=== PATIENT | female | born 1995 | race Caucasian/White ===

== ENCOUNTER 2018-06-27 15:22 | Emergency (ER) | payer OTHER ==
[2018-06-27] MEDS: HYDROCODONE/APAP (10/325) TAB PO (15:41)
[2018-06-27] MEDS: ONDANSETRON (ODT) 4 MG TAB ODT (15:41)
== END 2018-06-27 18:33 | disposition home or self-care (01) ==
LOC: E/R 15:22
DX: M54.2 Cervicalgia (principal); R51 Headache; R20.2 Paresthesia of skin; R07.9 Chest pain, unspecified
CPT/HCPCS: 70450; 71045; 72125; 74176; 81025; 99284-25

== ENCOUNTER 2018-12-16 11:46 | Inpatient (IN) | payer OTHER ==
[~2018-12-16 11:46] MED LIST: ONDANSETRON 4 MG INJ
[2018-12-16] MEDS ORDERED: FENTAnyl 50 MCG/ML VIAL IV ×3 (15:00)
[2018-12-16] MEDS ORDERED: DIPHENHYDRAMINE 50 MG INJ IV (15:00)
[2018-12-16] MEDS ORDERED: LABETALOL HCL 20MG INJ IV (15:00)
[2018-12-16] MEDS ORDERED: MEPERIDINE 25 MG INJ IV (15:00)
[2018-12-16] MEDS ORDERED: hydrALAzine 20 MG INJ IV (15:00)
[2018-12-16] MEDS ORDERED: HYDROmorphONE 1 MG/5 ML IV SYRINGE IV ×2 (15:00)
[2018-12-16] MEDS ORDERED: ROCURONIUM 50 MG INJ (15:11)
[2018-12-16] MEDS ORDERED: MIDAZOLAM 1 MG/ML 2 ML INJ (15:11)
[2018-12-16] MEDS ORDERED: FENTAnyl 50 MCG/ML VIAL (15:11)
[2018-12-16] MEDS ORDERED: PROPOFOL 20 ML ×2 (15:11→16:13)
[2018-12-16] MEDS ORDERED: METOCLOPRAMIDE 10 MG INJ (15:12)
[2018-12-16] MEDS ORDERED: CEFAZOLIN 1 GM INJ (16:10)
[2018-12-16] MEDS ORDERED: HYDROmorphONE 2 MG/ML SYG (16:10)
[2018-12-16] MEDS ORDERED: METOPROLOL 5 MG INJ (16:13)
[2018-12-16] MEDS: POLYMYXIN/BACITRACIN 1L IRRIG (16:21)
[2018-12-16] MEDS: GELATIN SIZE 100 SPONGE (16:21)
[2018-12-16] MEDS: LIDOCAINE 1%/EPI (1:100,000) (MDV) 20 ML (16:21)
[2018-12-16] MEDS: THROMBIN 5000 UNIT VIAL (16:22)
[2018-12-16] MEDS ORDERED: niCARdipine 50 MG in SOD CHLORIDE 0.9% 480 ML IV (16:30)
[2018-12-16] MEDS ORDERED: NEOSTIGMINE 3 MG/3 ML SYRINGE (17:05)
[2018-12-16] MEDS ORDERED: GLYCOPYRROLATE 0.4 MG INJ (17:05)
[2018-12-16] MEDS ORDERED: NALOXONE (0.4 MG/ML) INJ (17:28)
[2018-12-16] MEDS ORDERED: PHENYLephrine (100 MCG/ML) 10ML SYG (17:29)
[2018-12-16] MEDS: ONDANSETRON 4 MG INJ IV ×2 (18:01→22:52)
[2018-12-16] MEDS: HYDROmorphONE 1 MG/5 ML IV SYRINGE IV (18:02)
[2018-12-16 18:13] LABS: ADD UMIC NO; UR ASCORBIC ACID 20 mg/dL (NEGATIVE); UR BILIRUBIN (Dip) NEGATIVE (NEGATIVE); UR BLOOD (Dip) NEGATIVE (NEGATIVE); UR CLARITY CLEAR (CLEAR); UR COLOR YELLOW (YELLOW); UR GLUCOSE (Dip) NEGATIVE (NEGATIVE); UR KETONES (Dip) 1+ mg/dL (NEGATIVE); UR LEUKOCYTE ESTERASE (Dip) NEGATIVE Leu/ul (NEGATIVE); UR NITRITE (Dip) NEGATIVE (NEGATIVE); UR SPECIFIC GRAVITY (Dip) 1.024 (1.003-1.030); UR TOTAL PROTEIN (Dip) NEGATIVE (NEGATIVE); UR UROBILINOGEN (Dip) NEGATIVE (NEGATIVE)
[2018-12-16] MEDS: HYDROCODONE/APAP (5/325) TAB PO (21:37)
[2018-12-16] MEDS: CEFAZOLIN 1 GM/50 ML (PMX) 50 ML IVPB (22:52)
[2018-12-16] MEDS: DEXTROSE 5%-LR 1,000 ML IV (22:53)
[2018-12-17] MEDS: DEXTROSE 5%-LR 1,000 ML IV ×3 (01:30→21:30)
[2018-12-17] MEDS: ONDANSETRON 4 MG INJ IV ×3 (04:42→14:31)
[2018-12-17] MEDS: morphine 2 MG INJ IV ×6 (04:42→19:57)
[2018-12-17 05:27] LABS: ADD MAN DIFF? NO
[2018-12-17 05:35] LABS: BASOPHILS % 0.2 % (0.0-2.0); EOSINOPHILS % 0.2 % (0.0-7.0); HEMATOCRIT 31.7 % (37.0-47.0); HEMOGLOBIN 10.2 g/dl (12.0-16.0); LYMPHOCYTES # 2.1 10^3/ul (0.8-2.9); LYMPHOCYTES % 20.4 % (15.0-51.0); MEAN CORPUSCULAR HEMOGLOBIN 27.6 pg (29.0-33.0); MEAN CORPUSCULAR HGB CONC 32.2 g/dl (32.0-37.0); MEAN CORPUSCULAR VOLUME 85.9 fl (82.0-101.0); MEAN PLATELET VOLUME 10.9 fl (7.4-10.4); MONOCYTE # 0.6 10^3/ul (0.3-0.9); MONOCYTES % 6.1 % (0.0-11.0); NEUTROPHIL # 7.4 10^3/ul (1.6-7.5); NEUTROPHILS % 72.7 % (39.0-77.0); PLATELET COUNT 293 10^3/UL (140-415); RED BLOOD COUNT 3.69 10^6/ul (4.20-5.40); RED CELL DISTRIBUTION WIDTH 13.2 % (11.5-14.5)
[2018-12-17 05:35] LABS: WHITE BLOOD COUNT 10.1 10^3/ul (4.8-10.8)
[2018-12-17] MEDS: CEFAZOLIN 1 GM/50 ML (PMX) 50 ML IVPB ×3 (05:56→22:18)
[2018-12-17 06:18] LABS: ANION GAP 11 (5-13); BLOOD UREA NITROGEN 8 mg/dl (7-20); CALCIUM 8.3 mg/dl (8.4-10.2); CARBON DIOXIDE 26 mmol/L (21-31); CHLORIDE 102 mmol/L (97-110); CREATININE 0.49 mg/dl (0.44-1.00); Estimated GFR > 60 mL/min (>60); GLUCOSE 119 mg/dl (70-220); POTASSIUM 3.9 mmol/L (3.5-5.1); SODIUM 139 mmol/L (135-144)
[2018-12-17] MEDS: METOCLOPRAMIDE 10 MG INJ IV (18:35)
[2018-12-17] MEDS ORDERED: ONDANSETRON 4 MG INJ IV (19:30)
[2018-12-17] MEDS: HYDROCODONE/APAP (5/325) TAB PO (22:18)
[2018-12-17] MEDS: SUMATRIPTAN 50 MG TAB PO (23:28)
[2018-12-18] MEDS: DEXTROSE 5%-LR 1,000 ML IV ×2 (02:31→14:47)
[2018-12-18] MEDS: HYDROCODONE/APAP (5/325) TAB PO ×4 (02:34→20:35)
[2018-12-18 05:24] LABS: ADD MAN DIFF? NO
[2018-12-18 05:28] LABS: BASOPHILS % 0.1 % (0.0-2.0); EOSINOPHILS # 0.1 10^3/ul (0.0-0.5); EOSINOPHILS % 0.9 % (0.0-7.0); HEMATOCRIT 31.3 % (37.0-47.0); LYMPHOCYTES # 2.4 10^3/ul (0.8-2.9); LYMPHOCYTES % 31.7 % (15.0-51.0); MEAN CORPUSCULAR HEMOGLOBIN 27.5 pg (29.0-33.0); MEAN CORPUSCULAR HGB CONC 31.9 g/dl (32.0-37.0); MEAN CORPUSCULAR VOLUME 86.2 fl (82.0-101.0); MEAN PLATELET VOLUME 11.1 fl (7.4-10.4); MONOCYTE # 0.6 10^3/ul (0.3-0.9); MONOCYTES % 8.1 % (0.0-11.0); NEUTROPHIL # 4.5 10^3/ul (1.6-7.5); NEUTROPHILS % 58.9 % (39.0-77.0); PLATELET COUNT 286 10^3/UL (140-415); RED BLOOD COUNT 3.63 10^6/ul (4.20-5.40); RED CELL DISTRIBUTION WIDTH 13.5 % (11.5-14.5)
[2018-12-18 05:28] LABS: WHITE BLOOD COUNT 7.6 10^3/ul (4.8-10.8)
[2018-12-18 05:36] LABS: ANION GAP 10 (5-13); BLOOD UREA NITROGEN 4 mg/dl (7-20); CALCIUM 8.9 mg/dl (8.4-10.2); CARBON DIOXIDE 29 mmol/L (21-31); CHLORIDE 103 mmol/L (97-110); CREATININE 0.56 mg/dl (0.44-1.00); Estimated GFR > 60 mL/min (>60); GLUCOSE 110 mg/dl (70-220); POTASSIUM 3.6 mmol/L (3.5-5.1); SODIUM 142 mmol/L (135-144)
[2018-12-18] MEDS: morphine 2 MG INJ IV (12:25)
[2018-12-18] MEDS: SUMATRIPTAN 50 MG TAB PO (15:26)
[2018-12-19] MEDS: HYDROCODONE/APAP (5/325) TAB PO ×3 (01:43→15:15)
[2018-12-19] MEDS: DEXTROSE 5%-LR 1,000 ML IV ×2 (01:47→13:30)
== END 2018-12-19 16:05 | disposition home or self-care (01) | DRG 26 ==
LOC: REC 11:46 → MS1 12-17 16:25 → ICU 22:18
PROC: 00NC0ZZ Release Cerebellum, Open Approach (ICD-10-PCS; principal; 2018-12-16 14:00)
PROC: 00NW0ZZ Release Cervical Spinal Cord, Open Approach (ICD-10-PCS; 2018-12-16 14:00)
PROC: 00U207Z Supplement Dura Mater with Autologous Tissue Substitute, Open Approach (ICD-10-PCS; 2018-12-16 14:00)
DX: G93.5 Compression of brain (principal); G95.29 Other cord compression; M62.81 Muscle weakness (generalized); G89.18 Other acute postprocedural pain; Z91.81 History of falling
CPT/HCPCS: 80048; 81003; 85025; 86850; 86900; 86901; 87081; 87086; 97116; 97163; 97530

== ENCOUNTER 2019-04-23 20:03 | Inpatient (IN) | payer OTHER ==
[~2019-04-23 20:03] MED LIST changes: +LORAZEPAM 2 MG INJ; -ONDANSETRON 4 MG INJ
[2019-04-23] MEDS: LORAZEPAM 2 MG INJ IV (20:11)
[2019-04-23] MEDS: LEVETIRACETAM 1000 MG (PMX) 100 ML IVPB (20:18)
[2019-04-23 22:35] LABS: ADD MAN DIFF? NO
[2019-04-23 22:36] LABS: BASOPHILS % 0.3 % (0.0-2.0); EOSINOPHILS % 0.2 % (0.0-7.0); HEMATOCRIT 36.3 % (37.0-47.0); HEMOGLOBIN 11.7 g/dl (12.0-16.0); LYMPHOCYTES # 2.3 10^3/ul (0.8-2.9); LYMPHOCYTES % 22.1 % (15.0-51.0); MEAN CORPUSCULAR HEMOGLOBIN 27.4 pg (29.0-33.0); MEAN CORPUSCULAR HGB CONC 32.2 g/dl (32.0-37.0); MEAN PLATELET VOLUME 11.7 fl (7.4-10.4); MONOCYTE # 0.5 10^3/ul (0.3-0.9); MONOCYTES % 4.8 % (0.0-11.0); NEUTROPHIL # 7.5 10^3/ul (1.6-7.5); NEUTROPHILS % 72.3 % (39.0-77.0); PLATELET COUNT 371 10^3/UL (140-415); RED BLOOD COUNT 4.27 10^6/ul (4.20-5.40); RED CELL DISTRIBUTION WIDTH 14.2 % (11.5-14.5)
[2019-04-23 22:36] LABS: WHITE BLOOD COUNT 10.3 10^3/ul (4.8-10.8)
[2019-04-23 22:45] LABS: ANION GAP 12 (5-13); BLOOD UREA NITROGEN 13 mg/dl (7-20); CARBON DIOXIDE 22 mmol/L (21-31); CHLORIDE 104 mmol/L (97-110); CREATININE 0.62 mg/dl (0.44-1.00); Estimated GFR > 60 mL/min (>60); GLUCOSE 117 mg/dl (70-220); POTASSIUM 3.9 mmol/L (3.5-5.1); SODIUM 138 mmol/L (135-144)
[2019-04-23] MEDS ORDERED: ACETAMINOPHEN 325 MG TAB PO (23:30)
[2019-04-24] MEDS ORDERED: NACL 0.9% 3 ML SYG IV (02:00)
[2019-04-24] MEDS ORDERED: LORAZEPAM 2 MG INJ IV (02:00)
[2019-04-24] MEDS ORDERED: ACETAMINOPHEN 325 MG TAB PO (02:00)
[2019-04-24] MEDS: SUMATRIPTAN 6 MG/0.5 ML INJ SC (02:38)
[2019-04-24] MEDS: ONDANSETRON 4 MG INJ IV ×2 (06:24→12:59)
[2019-04-24 07:25] LABS: ADD MAN DIFF? NO
[2019-04-24 07:33] LABS: BASOPHILS % 0.2 % (0.0-2.0); EOSINOPHILS # 0.1 10^3/ul (0.0-0.5); EOSINOPHILS % 1.1 % (0.0-7.0); HEMATOCRIT 34.9 % (37.0-47.0); LYMPHOCYTES # 2.8 10^3/ul (0.8-2.9); MEAN CORPUSCULAR HGB CONC 31.5 g/dl (32.0-37.0); MEAN CORPUSCULAR VOLUME 85.5 fl (82.0-101.0); MEAN PLATELET VOLUME 11.3 fl (7.4-10.4); MONOCYTE # 0.5 10^3/ul (0.3-0.9); MONOCYTES % 6.7 % (0.0-11.0); NEUTROPHIL # 4.7 10^3/ul (1.6-7.5); NEUTROPHILS % 57.8 % (39.0-77.0); PLATELET COUNT 310 10^3/UL (140-415); RED BLOOD COUNT 4.08 10^6/ul (4.20-5.40); RED CELL DISTRIBUTION WIDTH 14.1 % (11.5-14.5)
[2019-04-24 07:33] LABS: WHITE BLOOD COUNT 8.1 10^3/ul (4.8-10.8)
[2019-04-24 07:54] LABS: HEMOGLOBIN A1C 5.4 % (0-5.9)
[2019-04-24 07:55] LABS: ALANINE AMINOTRANSFERASE 45 IU/L (13-69); ALBUMIN 3.8 g/dl (3.3-4.9); ALBUMIN/GLOBULIN RATIO 1.08; ALKALINE PHOSPHATASE 80 IU/L (42-121); ANION GAP 8 (5-13); ASPARTATE AMINO TRANSFERASE 41 IU/L (15-46); BILIRUBIN,INDIRECT 1.1 mg/dl (0-1.1); BILIRUBIN,TOTAL 1.1 mg/dl (0.2-1.3); BLOOD UREA NITROGEN 9 mg/dl (7-20); CALCIUM 9.2 mg/dl (8.4-10.2); CARBON DIOXIDE 27 mmol/L (21-31); CHLORIDE 107 mmol/L (97-110); CHOL/HDL RATIO 3.3 RATIO; CHOLESTEROL 156 mg/dl (100-200); CREATININE 0.55 mg/dl (0.44-1.00); Estimated GFR > 60 mL/min (>60); GLUCOSE 96 mg/dl (70-220); HDL CHOLESTEROL 46 mg/dl (33-83); LDL CHOLESTEROL,CALCULATED 99 mg/dl; POTASSIUM 3.8 mmol/L (3.5-5.1); SODIUM 142 mmol/L (135-144); TOTAL PROTEIN 7.3 g/dl (6.1-8.1); TRIGLYCERIDES 54 mg/dl (0-149)
[2019-04-24] MEDS: HEPARIN 5,000 UNIT/1 ML VIAL SC (09:14)
[2019-04-24] MEDS: morphine 2 MG INJ IV (12:10)
[2019-04-24] MEDS: SUMATRIPTAN 50 MG TAB PO (14:46)
[2019-04-24 15:33] LABS: PHOSPHORUS 3.7 mg/dl (2.5-4.9)
[2019-04-24 19:14] LABS: ADD UMIC NO; UR ASCORBIC ACID NEGATIVE (NEGATIVE); UR BILIRUBIN (Dip) NEGATIVE (NEGATIVE); UR BLOOD (Dip) NEGATIVE (NEGATIVE); UR CLARITY CLEAR (CLEAR); UR COLOR YELLOW (YELLOW); UR GLUCOSE (Dip) NEGATIVE (NEGATIVE); UR KETONES (Dip) NEGATIVE (NEGATIVE); UR LEUKOCYTE ESTERASE (Dip) NEGATIVE Leu/ul (NEGATIVE); UR NITRITE (Dip) NEGATIVE (NEGATIVE); UR SPECIFIC GRAVITY (Dip) 1.024 (1.003-1.030); UR TOTAL PROTEIN (Dip) NEGATIVE (NEGATIVE); UR UROBILINOGEN (Dip) NEGATIVE (NEGATIVE)
[2019-04-24 19:33] LABS: AMPHETAMINE/METHAMPHETAMINE Negative (NEGATIVE); BARBITURATES Negative (NEGATIVE); BENZODIAZEPINES Negative (NEGATIVE); CANNABINOIDS Negative (NEGATIVE); COCAINE Negative (NEGATIVE); OPIATES Positive (NEGATIVE)
[2019-04-24] MEDS: LEVETIRACETAM 500 MG (PMX) 100 ML IVPB (21:01)
[2019-04-25 07:10] LABS: ADD MAN DIFF? NO
[2019-04-25 07:18] LABS: WHITE BLOOD COUNT 6.7 10^3/ul (4.8-10.8)
[2019-04-25 07:18] LABS: BASOPHILS % 0.3 % (0.0-2.0); EOSINOPHILS # 0.1 10^3/ul (0.0-0.5); EOSINOPHILS % 1.9 % (0.0-7.0); HEMATOCRIT 34.8 % (37.0-47.0); HEMOGLOBIN 11.1 g/dl (12.0-16.0); LYMPHOCYTES # 2.3 10^3/ul (0.8-2.9); LYMPHOCYTES % 34.2 % (15.0-51.0); MEAN CORPUSCULAR HEMOGLOBIN 27.2 pg (29.0-33.0); MEAN CORPUSCULAR HGB CONC 31.9 g/dl (32.0-37.0); MEAN CORPUSCULAR VOLUME 85.3 fl (82.0-101.0); MEAN PLATELET VOLUME 11.3 fl (7.4-10.4); MONOCYTE # 0.5 10^3/ul (0.3-0.9); MONOCYTES % 7.8 % (0.0-11.0); NEUTROPHIL # 3.7 10^3/ul (1.6-7.5); NEUTROPHILS % 55.5 % (39.0-77.0); PLATELET COUNT 316 10^3/UL (140-415); RED BLOOD COUNT 4.08 10^6/ul (4.20-5.40)
[2019-04-25 07:50] LABS: ANION GAP 7 (5-13); BLOOD UREA NITROGEN 14 mg/dl (7-20); CALCIUM 8.9 mg/dl (8.4-10.2); CARBON DIOXIDE 27 mmol/L (21-31); CHLORIDE 105 mmol/L (97-110); CREATININE 0.68 mg/dl (0.44-1.00); Estimated GFR > 60 mL/min (>60); GLUCOSE 97 mg/dl (70-220); PHOSPHORUS 3.9 mg/dl (2.5-4.9); POTASSIUM 4.3 mmol/L (3.5-5.1); SODIUM 139 mmol/L (135-144)
[2019-04-25] MEDS: LEVETIRACETAM 500 MG (PMX) 100 ML IVPB ×2 (09:01→21:34)
[2019-04-25] MEDS: TOPIRAMATE 25 MG TAB PO ×2 (09:01→21:34)
[2019-04-25] MEDS: KETOROLAC 15 MG INJ IV (14:18)
[2019-04-25] MEDS: DOCUSATE SODIUM 100 MG CAP PO (21:34)
[2019-04-26] MEDS: TOPIRAMATE 25 MG TAB PO ×2 (08:30→21:34)
[2019-04-26] MEDS: DOCUSATE SODIUM 100 MG CAP PO ×2 (08:30→21:34)
[2019-04-26] MEDS: LEVETIRACETAM 500 MG (PMX) 100 ML IVPB ×2 (08:30→21:34)
[2019-04-26] MEDS ORDERED: KETOROLAC 15 MG INJ IV (09:30)
[2019-04-27 07:49] LABS: ANION GAP 7 (5-13); BLOOD UREA NITROGEN 12 mg/dl (7-20); CALCIUM 9.2 mg/dl (8.4-10.2); CARBON DIOXIDE 27 mmol/L (21-31); CHLORIDE 104 mmol/L (97-110); CREATININE 0.85 mg/dl (0.44-1.00); Estimated GFR > 60 mL/min (>60); GLUCOSE 101 mg/dl (70-220); POTASSIUM 4.5 mmol/L (3.5-5.1); SODIUM 138 mmol/L (135-144)
[2019-04-27] MEDS: TOPIRAMATE 25 MG TAB PO (09:01)
[2019-04-27] MEDS: DOCUSATE SODIUM 100 MG CAP PO (09:01)
[2019-04-27] MEDS: LEVETIRACETAM 500 MG (PMX) 100 ML IVPB (09:01)
== END 2019-04-27 14:10 | disposition home or self-care (01) | DRG 101 ==
LOC: TEL 23:03 → E/R 20:03
DX: G40.909 Epilepsy, unspecified, not intractable, without status epilepticus (principal); G43.909 Migraine, unspecified, not intractable, without status migrainosus; D64.9 Anemia, unspecified; E66.9 Obesity, unspecified; Z98.890 Other specified postprocedural states; Z68.38 Body mass index [BMI] 38.0-38.9, adult
CPT/HCPCS: 36415; 70450; 70551; 80048; 80053; 80061; 80307; 81003; 83036; 83735; 84100; 84443; 85025; 92610; 95819; 96374; 96375; 97116; 97162; 97530; 99285-25